=== PATIENT | female | born 1965 | race Two or more races ===

== ENCOUNTER 2024-05-03 09:26 | Emergency (ER) | payer MEDICAID, OTHER ==
[~2024-05-03] VITALS: Ht 157.5 cm; Wt 146.0 kg
[~2024-05-03 09:26] MED LIST: CEPH-91 PO
--- NOTE | 2024-05-03 10:04 | DVH ---
XY R KNEE 4V XRAY INDICATION: TRAUMA S/P FALL TECHNICAL DATA: Frontal, oblique and lateral views were obtained of the right knee. COMPARISON: None FINDINGS: No fracture is identified. Medial, lateral and patellofemoral compartment joint spaces are maintained . Alignment is anatomic. Soft tissues are within normal limits. No joint effusion is demonstrated. IMPRESSION: 1. No acute fracture or dislocation of the right knee.
[2024-05-03 10:48] VITALS: BP 113/71; PULSE 99; RESP 20; TEMP 98.2; O2SAT 95
--- NOTE | 2024-05-03 11:15 | ED.PDOC ---
Musculoskeletal HPI Comments A 58 YEAR OLD FEMALE PRESENTS TO THE ED WITH COMPLAINT OF RIGHT KNEE PAIN S/P FALL. PATIENT STATES SHE WAS TRYING TO GET INTO THE CAR TODAY AND SHE ACCIDENTALLY TWISTED HER RIGHT KNEE AND FELT A POP AND PAIN SHORTLY AFTER. PATIENT REPORTS SHE IS NOW EXPERIENCING RIGHT KNEE PAIN THAT IS WORSE WITH MOVEMENT AND WHEN BEARING WEIGHT. PATIENT DENIES HEAD INJURY, NECK INJURY, LOC, FEVER, CHILLS, SHORTNESS OF BREATH, CHEST PAIN, ABDOMINAL PAIN, NAUSEA, VOMITING, HEADACHE, OR OTHER COMPLAINTS. NO OTHER SYMPTOMS OR MODIFYING FACTORS AT THIS TIME. PATIENT IS ALERT, ORIENTED X 4, AND HAS STEADY GAIT. Chief Complaint: Fall Injury Time Seen by MD: 09:39 Primary Care Provider: NONE Reviewed Notes: Nurses Notes, Medications, Allergies Allergies: Coded Allergies: Bacitracin (Verified Allergy, Severe, RASH, 12/29/11) Neomycin (Verified Allergy, Severe, RASH, 12/29/11) Polymyxin B (Verified Allergy, Severe, RASH, 12/29/11) Home Meds Reported Medications Cephalexin (Keflex) 250 Mg Cap, 0 PO, CAP 06/02/13 Information Source: Patient Mode of Arrival: Ambulatory Location: Right Extremity Location: Knee Timing: Hours Severity: Moderate Able to Move Extremity: Yes Bear Weight: Limited Pain: Moderate Mechanism: Twisting Circumstances: Fall, Accident Onset of Symptoms: After Trauma Symptoms: Pain DVT Risk Factors: NONE Last Tetanus: Unknown Associated signs and symptoms: Knee pain Past Medical History PAST MEDICAL HISTORY: Anxiety, Depression, High Lipids, HTN Past Medical History (Other): ABD HERNIA, CHRONIC LOW BACK PAIN Surgical History: BTL, 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: No 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 History Family History Family History: No family hx of Cancer, No family hx of Heart john Social History Smoker: Cigarettes Alcohol: Denies ETOH Use Drugs: Denies Drug Use Lives In: Home Constitutional: denies: chills, diaphoresis, fatigue, fever, malaise, sweats, weakness, others EENTM: denies: blurred vision, double vision, ear bleeding, ear discharge, ear drainage, ear pain, ear ringing, eye pain, eye redness, hearing loss, mouth pain, mouth swelling, nasal discharge, nose bleeding, nose congestion, nose pain, photophobia, tearing, throat pain, throat swelling, voice changes, others Respiratory: denies: cough, hemoptysis, orthopnea, SOB at rest, shortness of breath, SOB with excertion, stridor, wheezing, others Cardiovascular: denies: chest pain, dizzy spells, diaphoresis, Dyspnea on exertion, edema, irregular heart beat, left arm pain, lightheadedness, palpi tations, PND, syncope, others Gastrointestinal: denies: abdomen distended, abdominal pain, blood streaked bowels, constipated, diarrhea, dysphagia, difficulty swallowing, hematemesis, melena, nausea, poor appetite, poor fluid intake, rectal bleeding, rectal pain, vomiting, others Genitourinary: denies: abnormal vagina bleeding, burning, dyspareunia, dysuria, flank pain, frequency, hematuria, incontinence, pain, , vagina discharge, urgency, others Neurological: denies: dizziness, fainting, headache, left sided numbness, left sided weakness, numbness, paresthesia, pre-existing deficit, right sided numbness, right sided weakness, seizure, speech problems, tingling, tremors, weakness, others Musculoskeletal: reports: joint pain, joint swelling, others (RIGHT KNEE PAIN); denies: back pain, gout, muscle pain, muscle stiffness, neck pain Integumetry: denies: bruises, change in color, change in hair/nails, dryness, laceration, lesions, lumps, rash, wounds, others Allergic/Immunocompromised: denies: Difficulty Healing, Frequent Infections, Hives, Itching, others Hematologic/Lymphatic: denies: anemia, blood clots, easy bleeding, easy bruising, swollen glands, others Endocrine: denies: excessive hunger, excessive sweating, excessive thirst, excessive urination, flushing, intolerance to cold, intolerance to heat, unexplained weight gain, unexplained weight loss, others Psychiatric: denies: anxiety, bipolar disorder, depression, hopeless, panic disorder, schizophrenia, sleepless, suicidal, others All Other Systems: Reviewed and Negative Physical Exam General Appearance: Obese HEENT: Normal ENT Inspection, PERRL/EOMI, Pharynx Normal, TMs Normal Neck: Full Range of Motion, Non-Tender, Normal, Normal Inspection Respiratory: Chest Non-Tender, Lungs Clear, No Accessory Muscle Use, No Respiratory Distress, Normal Breath Sounds Cardiovascular: No Edema, No JVD, No Murmur, No Gallop, Normal Peripheral Pulses, Regular Rate/Rhythm Breast Exam: Deferred Gastrointestinal: No Organomegaly, Non Tender, No Pulsatile Mass, Normal Bowel Sounds, Soft Genitalia: Deferred Pelvic: Deferred Rectal: Deferred Extremities: Decreased range of motion, No calf tenderness, Normal capillary refill, No pedal edema, Tender (AND MILD SWELLING ON RIGHT KNEE, NO JOINT EFFUSION OF RIGHT KNEE. ) Musculoskeletal : Apperance: Normal Neurologic: Alert, clinical nurse reviewer II-XII nml as Tested, No Motor Deficits, Normal Affect, Normal Mood, No Sensory Deficits Cerebellar Function: Normal Reflexes: Normal Skin: Dry, Normal Color, Warm Peripheral Pulses: 2+ carotid (R), 2+ carotid (L), 2+ dorsalis pedis (R), 2+ dorsalis pedis (L) Lymphatic: No Adenopathy Was a procedure done? Was a procedure done?: No Differential Diagnosis EXT Differential Diagnosis: Fracture, Sprain, Dislocation, DJD, Contusion, Strain, Arthritis, Bursitis X-Ray, Labs, Meds, VS Vital Signs Date Time Temp Pulse Resp B/P (MAP) Pulse Ox O2 Delivery O2 Flow Rate FiO2 05/03/24 10:48 98.2 99 20 113/71 (85) 95 98.2 05/03/24 10:48 99 20 95 Room Air 05/03/24 09:40 98.2 99 20 113/71 (85) 95 XY R KNEE 4V XRAY INDICATION: TRAUMA S/P FALL TECHNICAL DATA: Frontal, oblique and lateral views were obtained of the right knee. COMPARISON: None FINDINGS: No fracture is identified. Medial, lateral and patellofemoral compartment joint spaces are maintained. Alignment is anatomic. Soft tissues are within normal limits. No joint effusion is demonstrated. IMPRESSION: 1. No acute fracture or dislocation of the right knee. ATED BY: DOM CHOW MD DICTATED DATE/TIME: 05/03/24 100 SIGNED BY: DOM CHOW MD SIGNED DATE/TIME: 05/03/241000 CC: X-Ray, Labs, Meds, VS Comment EXTERNAL MEDICAL RECORDS REVIEWED: [NONE] INDEPENDENT HISTORIANS: [NONE] SOCIAL DETERMINANTS OF HEALTH: [NONE] LABS ORDERED: NONE REVIEWED AND INTERPRETED RESULTS: NONE IMAGING ORDERED: XR KNEE RT TREATMENTS ORDERED: KNEE IMMOBILIZER APPLIED TO PATIENT'S RIGHT KNEE. PROCEDURES PERFORMED: NONE CRITICAL CARE TIME: NONE I HAVE DISCUSSED THE PATIENT WITH THE ATTENDING PHYSICIAN DR. CORONA AND HE AGREES WITH THE PATIENT'S PLAN OF CARE AND DISPOSITION. BASED ON HISTORY OF PRESENT ILLNESS, AND PHYSICAL EXAM, PATIENT WILL BE DISCHARGED HOME. SHARED DECISION MAKING: PATIENT INSTRUCTED TO FOLLOW UP WITH PRIMARY CARE PROVIDER IN 1-2 DAYS FOR RE-EVALUATION OF SYMPTOMS. PATIENT VERBALIZES UNDERSTANDING TO RETURN TO ED FOR NEW OR WORSENING SYMPTOMS OR IF FOLLOW UP WITH PCP CANNOT BE OBTAINED. PATIENT FEELS COMFORTABLE GOING HOME AT THIS TIME. ALL QUESTIONS ADDRESSED AT TIME OF DISCHARGE. Images Reviewed?: Images reviewed and evaluated by me Time of 1ST Reevaluation: 11:25 Reevaluation 1ST: Improved Patient Education/Counseling: Diagnosis, Treatment, Need For Follow Up Family Education/Counseling: Diagnosis, Treatment, Need For Follow Up Medical Screening: No EMC Exist At This Time Departure 1 Departure Time of Disposition: 11:25 Impression: Primary Impression: Sprain of right knee Qualified Codes: S83.91XA - Sprain of unspecified site of right knee, init ial encounter Additional Impression: Status post fall Disposition: 01 HOME / SELF CARE / HOMELESS Condition: Stable Additional Instructions: FOLLOW-UP WITH PCP IN 1 TO 2 DAYS. RETURN TO ED FOR ANY NEW OR WORSENING SYMPTOMS. Discharged With: Self, Spouse Critical Care Note Critical Care Time?: No Stability Stability form required: No I personally scribed for EDWARDO VALENZUELA ([email or web address]) on 05/03/24 at 11:15. Electronically submitted by Bari Damico ([email or web address]). EDWARDO VALENZUELA May 03, 2024 11:15
== END 2024-05-03 11:26 | disposition home or self-care (01) ==
LOC: ER 09:26
DX: S83.91XA Sprain of unspecified site of right knee, initial encounter (principal); I10 Essential (primary) hypertension; F17.210 Nicotine dependence, cigarettes, uncomplicated; Z98.51 Tubal ligation status; X50.1XXA Overexertion from prolonged static or awkward postures, initial encounter; Y93.89 Activity, other specified; Y92.89 Other specified places as the place of occurrence of the external cause; Y99.8 Other external cause status
CPT/HCPCS: 29505; 73564

== ENCOUNTER 2025-01-14 12:11 | Inpatient (IN) | payer MEDICAID ==
[~2025-01-14] VITALS: Ht 157.5 cm; Wt 162.7 kg
--- NOTE | 2025-01-14 12:50 | ED.PDOC ---
History of Present Illness HPI Comments 59-year-old female presents to the ER in a wheelchair and with prior medical history of gastric sleeve in the chief complaint of chest pain. Patient reports on having left-sided chest pain for the past two days which was constant and worsens with exertion, associated with shortness a breath. Chief Complaint: Chest Pain Time Seen by MD: 12:45 Primary Care Provider: NONE Reviewed Notes: Nurses Notes, Medications, Allergies Allergies: Coded Allergies: Bacitracin (Verified Allergy, Severe, RASH, 12/29/11) Neomycin (Verified Allergy, Severe, RASH, 12/29/11) Polymyxin B (Verified Allergy, Severe, RASH, 12/29/11) Home Meds Reported Medications Cephalexin (Keflex) 250 Mg Cap, 0 PO, CAP 06/02/13 Information Source: Patient Mode of Arrival: Wheelchair Severity: Moderate Timing: Days Duration: Since onset, Days Prehospital treatment: None Past Medical History Surgical History (Other): Gastric sleeve 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: No 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 History Family History Family History: Reviewed,noncontributory to illness, Unknown Social History Smoker: Unknown Alcohol: Unknown Drugs: Unknown Lives In: Home Constitutional: denies: chills, diaphoresis, fatigue, fever, malaise, sweats, weakness, others EENTM: denies: blurred vision, double vision, ear bleeding, ear discharge, ear drainage, ear pain, ear ringing, eye pain, eye redness, hearing loss, mouth pain, mouth swelling, nasal discharge, nose bleeding, nose congestion, nose pain, photophobia, tearing, throat pain, throat swelling, voice changes, others Respiratory: reports: shortness of breath; denies: cough, hemoptysis, orthopnea, SOB at rest, SOB with excertion, stridor, wheezing, others Cardiovascular: reports: chest pain; denies: dizzy spells, diaphoresis, Dyspnea on exertion, edema, irregular heart beat, left arm pain, lightheadedness, palpitations, PND, syncope, others Gastrointestinal: denies: abdomen distended, abdominal pain, blood streaked bowels, constipated, diarrhea, dysphagia, difficulty swallowing, hematemesis, melena, nausea, poor appetite, poor fluid intake, rectal bleeding, rectal pain, vomiting, others Genitourinary: denies: abnormal vagina bleeding, burning, dyspareunia, dysuria, flank pain, frequency, hematuria, incontinence, pain, , vagina discharge, urgency, others Neurological: denies: dizziness, fainting, headache, left sided numbness, left sided weakness, numbness, paresthesia, pre-existing deficit, right sided numbness, right sided weakness, seizure, speech problems, tingling, tremors, weakness, others Musculoskeletal: denies: back pain, gout, joint pain, joint swelling, muscle pain, muscle stiffness, neck pain, others Integumetry: denies: bruises, change in color, change in hair/nails, dryness, laceration, lesions, lumps, rash, wounds, others Allergic/Immunocompromised: denies: Difficulty Healing, Frequent Infections, Hives, Itching, others Hematologic/Lymphatic: denies: anemia, blood clots, easy bleeding, easy bruising, swollen glands, others Endocrine: denies: excessive hunger, excessive sweating, excessive thirst, excessive urination, flushing, intolerance to cold, intolerance to heat, unexplained weight gain, unexplained weight loss, others Psychiatric: denies: anxiety, bipolar disorder, depression, hopeless, panic disorder, schizophrenia, sleepless, suicidal, others All Other Systems: Reviewed and Negative Physical Exam General Appearance: Moderate Distress, Obese HEENT: Normal ENT Inspection, Pharynx Normal, TMs Normal Neck: Full Range of Motion, Non-Tender, Normal, Normal Inspection Respiratory: Chest Non-Tender, Lungs Clear, No Accessory Muscle Use, No Respiratory Distress, Normal Breath Sounds Cardiovascular: No Edema, No JVD, No Murmur, No Gallop, Normal Peripheral Pulses, Regular Rate/Rhythm Breast Exam: Deferred Gastrointestinal: No Organomegaly, Non Tender, No Pulsatile Mass, Normal Bowel Sounds, Soft Genitalia: Deferred Pelvic: Deferred Rectal: Deferred Extremities: No calf tenderness, Normal capillary refill, Normal range of motion, No pedal edema Musculoskeletal : Apperance: Normal Neurologic: Alert, television installer II-XII nml as Tested, No Motor Deficits, Normal Affect, Normal Mood, No Sensory Deficits Cerebellar Function: NOT DONE Reflexes: NOT DONE Skin: Dry, Normal Color, Warm Peripheral Pulses: 3+ Radial (R), 3+ Radial (L) Lymphatic: No Adenopathy Was a procedure done? Was a procedure done?: No EKG EKG : Pulse Rate (adult): 74 [place]: Normal Cardiac Rhythm: NSR Block: None Hypertrophy: None ST: Normal Differential Dx Considerations may include: Anemia Electrolyte imbalance X-Ray, Labs, Meds, VS Vital Signs Date Time Temp Pulse Resp B/P (MAP) Pulse Ox O2 Delivery O2 Flow Rate FiO2 01/14/25 13:19 142/92 01/14/25 13:16 68 01/14/25 12:50 74 01/14/25 12:15 74 01/14/25 12:12 75 26 147/64 96 Lab Test 01/14/25 14:41 01/14/25 13:21 01/14/25 12:35 Range/Units Troponin I High Sensitivity Pending < 3 L </=34 ng/L Urine Color Pending Urine Clarity Pending Urine pH Pending Urine Specific [place] Pending Urine Protein Pending Urine Ketones Pending Urine Blood Pending Urine Nitrite Pending Urine Bilirubin Pending Urine Urobilinogen Pending Urine Leukocyte Esterase Pending Urine RBC Pending Urine Microscopic WBC Pending Urine Squamous Epithelial Cells Pending Urine Bacteria Pending Urine Glucose Pending White Blood Count 7.9 4.4-10.8 10^3/uL Red Blood Count 4.87 4.0-5.20 10^6/uL Hemoglobin 14.6 12.2-16.2 g/dL Hematocrit 43.5 36.0-46.0 % Mean Corpuscular Volume 89.3 80.0-100.0 fL Mean Corpuscular Hemoglobin 29.9 28.0-32.0 pg Mean Corpuscular Hemoglobin Concent 33.5 32.0-36.0 g/dL Red Cell Distribution Width 14.9 H 11.8-14.3 % Platelet Count 290 140-450 10^3/uL Mean Platelet Volume 8.2 6.9-10.8 fL Neutrophils (%) (Auto) 69.0 37.0-80.0 % Lymphocytes (%) (Auto) 21.4 10.0-50.0 % Monocytes (%) (Auto) 7.6 0.0-12.0 % Eosinophils (%) (Auto) 1.3 0.0-7.0 % Basophils (%) (Auto) 0.7 0.0-2.0 % Neutrophils # (Auto) 5.4 1.6-8.6 10 ^3/uL Lymphocytes # (Auto) 1.7 0.4-5.4 10 ^3/uL Monocytes # (Auto) 0.6 0-1.3 10 ^3/uL Eosinophils # (Auto) 0.1 0-0.8 10 ^3/uL Basophils # (Auto) 0.1 0-0.2 10 ^3/uL Nucleated Red Blood Cells 0.1 % Sodium Level 140 136-145 mmol/L Potassium Level 5.1 3.5-5.1 mmol/L Chloride Level 107 98-107 mmol/L Carbon Dioxide Level 24 20-31 mmol/L Anion Gap 9 5-15 Blood Urea Nitrogen 9 9-23 mg/dL Creatinine 1.03 H 0.550-1.02 mg/dL Glomerular Filtration Rate Calc 63 >90 mL/min BUN/Creatinine Ratio 8.7 L 10.0-20.0 Serum Glucose 104 74-106 mg/dL Calcium Level 9.1 8.7-10.4 mg/dL Current Medications Medications (Trade) Dose Ordered Sig/Demetria Route Start Time Stop Time Status Last Admin Aspirin 325 mg ONCE ONCE PO 01/14/25 12:45 01/14/25 12:46 DC 01/14/25 13:18 Nitroglycerin (Ntrostat Sublingual) 0.4 mg ONCE ONCE SL 01/14/25 12:45 01/14/25 12:46 DC 01/14/25 13:19 Patient alert. Complaining of chest pain. Was given aspirin. Was given nitro. Potassium is upper limit of normal. Continues to have chest pain. Was given morphine. Was given Zofran. EKG reviewed does not show any acute changes. Explained to the patient. Continue monitoring. Time of 1ST Reevaluation: 13:15 Reevaluation 1ST: Unchanged Patient Education/Counseling: Diagnosis, Treatment, Prognosis Family Education/Counseling: Diagnosis, Treatment, Prognosis SEPSIS Sepsis Screen Date sepsis recognized/suspect: Jan 14, 2025 Time Sepsis recognized/suspect: 1212 Recent Procedure: No On Antibiotic Therapy: No Respiratory Rate >20: No Heart Rate >90: No Temp<36 C (96.8 F) or >38.3 C: No SBP <90 or MAP <65 mmHG: No New Acute Mental Status Change: No Is the patient on CPAP, BIPAP,: No Physician Orders Electrocardigram (01/14/25 13:18) Electrocardigram (01/14/25 15:18) Troponin-I Hs (01/14/25 13:21) Troponin-I Hs (01/14/25 15:21) Chest Portable (01/14/25 12:44) Urinalysis (01/14/25 12:44) Vital Signs Date Time Temp Pulse Resp B/P (MAP) Pulse Ox O2 Delivery O2 Flow Rate FiO2 01/14/25 13:19 142/92 01/14/25 13:16 68 01/14/25 12:50 74 01/14/25 12:15 74 01/14/25 12:12 75 26 147/64 96 Laboratory Tests Test 01/14/25 12:35 White Blood Count 7.9 10^3/uL (4.4-10.8) Medications Medications Dose Ordered Sig/Demetria Route Start Time Stop Time Status Last Admin Dose Admin Aspirin 325 mg ONCE ONCE PO 01/14/25 12:45 01/14/25 12:46 DC 01/14/25 13:18 Nitroglycerin 0.4 mg ONCE ONCE SL 01/14/25 12:45 01/14/25 12:46 DC 01/14/25 13:19 Departure 1 Departure Time of Disposition: 15:17 Impression: Primary Impression: Chest pain of unknown etiology Additional Impression: HTN (hypertension) Qualified Codes: I10 - Essential (primary) hypertension Disposition: ADMITTED INPATIENT Admit to: Med Surg Condition: Guarded Critical Care Note Critical Care Time?: No Stability Stability form required: No Heart Score Heart Score: Heart Score Response (Comments) Value History Slightly Suspicious 0 EKG Normal 0 Age 45-64 1 Risk Factors >3 or Hx ASHD 2 Troponin Normal limit 0 Total 3 I personally scribed for PORSCHE CORONA MD ([email or web address]) on 01/14/25 at 12:50. Electronically submitted by Jose Gilmore ([email or web address]). PORSCHE CORONA MD Jan 14, 2025 12:50
--- NOTE | 2025-01-14 13:17 | ECG ---
[facility] Test Date: 2025-01-14 Test Time: 13:16:36 Pat Name: FRANK GAITAN Department: ED Room: [address] [place] [address] Gender: F Operations Research Analyst: ROSCOE : 1965 Requested By: PORSCHE CORONA Order Number: [id number] Reading MD: Leonard Cruz Measurements Intervals [place] Rate: 68 P: 39 MO: 187 QRS: 74 QRSD: 109 T: 70 QT: 418 QTc: 445 Interpretive Statements Sinus rhythm Atrial premature complex Low voltage, precordial leads Electronically Signed On 01-15-2025 14:27:45 PDT by Leonard Cruz Please click the below link to view image of tracing.
[2025-01-14] MEDS: NITROGLYCERIN 0.4 MG SL TAB SL ONE (13:19)
--- NOTE | 2025-01-14 13:48 | DVH ---
CHEST RADIOGRAPH Indication: sob Technique: Single frontal view of the chest was obtained Comparison: None FINDINGS: Lines and Tubes: None Lungs: Pulmonary vascular congestion. No focal consolidation. Pleura: No effusion. No pneumothorax. Cardiomediastinal contours: Unremarkable Bones: No acute osseous abnormality. IMPRESSION: 1. Pulmonary vascular congestion. No focal consolidation.
[2025-01-14 14:51] LABS: Hematocrit 43.5 % (36.0-46.0); Hemoglobin 14.6 g/dL (12.2-16.2); Mean Corpuscular Hemoglobin 29.9 pg (28.0-32.0); Mean Corpuscular Volume 89.3 fL (80.0-100.0); Nucleated Red Blood Cells % 0.1 %
[2025-01-14 14:53] LABS: Chloride 107 mmol/L (98-107); Potassium 5.1 mmol/L (3.5-5.1); Sodium 140 mmol/L (136-145)
[2025-01-14 14:54] LABS: Anion Gap 9 (5-15); Carbon Dioxide 24 mmol/L (20-31)
[2025-01-14 14:55] LABS: Calcium 9.1 mg/dL (8.7-10.4)
[2025-01-14 14:59] LABS: BUN/Creatinine Ratio 8.7 (10.0-20.0); Glucose 104 mg/dL (74-106)
[2025-01-14 15:10] LABS: Blood Urea Nitrogen 9 mg/dL (9-23)
[2025-01-14 15:31] LABS: Urine Protein, UAD Negative (Negative)
[2025-01-14] MEDS: ONDANSETRON HCL 4 MG/2 ML VIAL IV ONE ×2 (16:20→19:00)
[2025-01-14] MEDS: MORPHINE SULFATE 4 MG/ML SYR/VIAL IV ONE ×2 (16:20→19:00)
[2025-01-14] MEDS ORDERED: NITROGLYCERIN 0.4 MG SL TAB SL PRN (23:15)
--- NOTE | 2025-01-14 23:54 | DVHHPRES ---
History of Present Illness Resident Creating Document: CHAZ WILSON RESIDENT History of Present Illness Concepción Sanchez is a 59 year old female with past medical history of hyperlipidemia, hypertension, anxiety, depression, PTSD,GERD, Umbilical hernia who came to the ED with chief complaints of 7/10, pressure-like chest pain, constant, radiating to the back and left arm, increased with exertion, relieved with rest and associated with shortness of breath since 3 days. Patient states that today morning her pain has increased and to the ED. patient also complained of bilateral leg swelling since 1 year, uses CPAP at night with 2 L oxygen for obstructive sleep apnea. Patient also states she had a thyroid nodule, adrenal cyst. He also states she has heartburn, dizziness when getting up, lower back pain, neck pain, constipation with last bowel movement 2 days ago. Patient also states she has pain in her hernia when she coughs or sneezes. Patient denies any dysuria, hematuria, fever, chills, palpitations, dizziness, headaches, diarrhea, nausea, vomiting. Patient is admitted for further management. Echo was ordered, Cardiology consulted. Surgical history: Appendicectomy, gastric bypass surgery in 2021 Family history: Father of [place] in 40s Personal history: Quit smoking 5 years ago used to smoke 1 pack per day since 40 years, denies drinking, drug use Lives with: Family PCP: Dr. Tran Review of Systems Constitutional: No: Fever, Chills, Sweats, Weakness, Malaise, Other Eyes: No: Pain, Vision change, Conjunctivae inflammation, Eyelid inflammation, Other, Redness ENT: No: Ear pain, Ear discharge, Nose pain, Nose discharge, Nose congestion, Mouth pain, Mouth swelling, Throat pain, Throat swelling, Other Respiratory: Shortness of breath, SOB with excertion; No: Cough, Dry, Wheezing, Hemoptysis, Pleuritic Pain, Sputum, Wheezing, Other Cardiovascular: Chest Pain; No: Palpitations, Orthopnea, Paroxysmal Noc. Dyspnea, Edema, Lt Headedness, Other Gastrointestinal: No: Nausea, Vomiting, Abdominal Pain, Diarrhea, Constipation, Melena, Hematochezia, Other Genitourinary: No Dysuria, No Frequency, No Incontinence, No Hematuria, No Retention, No Other Musculoskeletal: No: other, neck pain, shoulder pain, arm pain, back pain, hand pain, leg pain, foot pain Skin: No: Rash, Lesions, Jaundice, Bruising, Other Neurological: No: Weakness, Numbness, Incoordination, Change in speech, Confusion, Seizures, Other Allergies: Coded Allergies: Bacitracin (Verified Allergy, Severe, RASH, 12/29/11) Neomycin (Verified Allergy, Severe, RASH, 12/29/11) Polymyxin B (Verified Allergy, Severe, RASH, 12/29/11) Medications Current Medications Medications Dose Ordered Sig/Demetria Route Start Time Stop Time Status Last Admin Dose Admin Nitroglycerin 0.4 mg Q5MINP PRN SL 01/14/25 23:15 Morphine Sulfate 2 mg Q30M PRN IV 01/14/25 23:15 Exam Vital Signs Vital Signs Date Time Temp Pulse Resp B/P (MAP) Pulse Ox O2 Delivery O2 Flow Rate FiO2 01/14/25 23:38 97.6 60 16 128/42 (70) 96 97.6 01/14/25 16:13 Room Air Exam General: Patient alert and oriented in person, place and time. Patient following commands. In moderate distress HEENT: Normocephalic, atraumatic, moist mucous membranes Respiratory/pulmonary: Clear lungs bilaterally, vesicular murmurs present in almost all lung guan, crackles heard on auscultation Cardiovascular: Normal heart sounds S1 and S2 with no associated murmurs Abdomen: Abdomen nondistended, there is no pain to palpation in any of the abdominal quadrants, no palpable masses. Extremities: +2 Bilateral leg swelling Peripheral Pulses: 3+ Radial (R). 3+ Radial (L). 3+ Dorsalis pedis (R). 3+ Dorsalis pedis(L) Skin: No rashes or pruritus, there is no sacral edema present at this time. Neurological: Intact cranial nerves with no focal neurologic deficits Labs/Xrays Labs Test 01/14/25 14:41 01/14/25 13:21 01/14/25 12:35 Range/Units Troponin I High Sensitivity < 3 L </=34 ng/L Urine Color Yellow Yellow Urine Clarity Hazy H Clear Urine pH 5.5 5.0-9.0 Urine Specific [place] 1.025 1.001-1.035 Urine Protein Negative Negative Urine Ketones Negative Negative Urine Blood Negative Negative /uL Urine Nitrite Negative Negative Urine Bilirubin Negative Negative Urine Urobilinogen Normal Negative mg/dL Urine Leukocyte Esterase Negative Negative /uL Urine RBC 1 0 - 4 /hpf Urine Microscopic WBC 11 H 0-5 /HPF Urine Squamous Epithelial Cells Mod <5 /hpf Urine Bacteria Many H None Seen /hpf Urine Glucose Normal Normal mg/dL White Blood Count 7.9 4.4-10.8 10^3/uL Red Blood Count 4.87 4.0-5.20 10^6/uL Hemoglobin 14.6 12.2-16.2 g/dL Hematocrit 43.5 36.0-46.0 % Mean Corpuscular Volume 89.3 80.0-100.0 fL Mean Corpuscular Hemoglobin 29.9 28.0-32.0 pg Mean Corpuscular Hemoglobin Concent 33.5 32.0-36.0 g/dL Red Cell Distribution Width 14.9 H 11.8-14.3 % Platelet Count 290 140-450 10^3/uL Mean Platelet Volume 8.2 6.9-10.8 fL Neutrophils (%) (Auto) 69.0 37.0-80.0 % Lymphocytes (%) (Auto) 21.4 10.0-50.0 % Monocytes (%) (Auto) 7.6 0.0-12.0 % Eosinophils (%) (Auto) 1.3 0.0-7.0 % Basophils (%) (Auto) 0.7 0.0-2.0 % Neutrophils # (Auto) 5.4 1.6-8.6 10 ^3/uL Lymphocytes # (Auto) 1.7 0.4-5.4 10 ^3/uL Monocytes # (Auto) 0.6 0-1.3 10 ^3/uL Eosinophils # (Auto) 0.1 0-0.8 10 ^3/uL Basophils # (Auto) 0.1 0-0.2 10 ^3/uL Nucleated Red Blood Cells 0.1 % Sodium Level 140 136-145 mmol/L Potassium Level 5.1 3.5-5.1 mmol/L Chloride Level 107 98-107 mmol/L Carbon Dioxide Level 24 20-31 mmol/L Anion Gap 9 5-15 Blood Urea Nitrogen 9 9-23 mg/dL Creatinine 1.03 H 0.550-1.02 mg/dL Glomerular Filtration Rate Calc 63 >90 mL/min BUN/Creatinine Ratio 8.7 L 10.0-20.0 Serum Glucose 104 74-106 mg/dL Calcium Level 9.1 8.7-10.4 mg/dL SEPSIS Sepsis Screen Date sepsis recognized/suspect: Jan 14, 2025 Time Sepsis recognized/suspect: 2 Recent Procedure: No On Antibiotic Therapy: No Respiratory Rate >20: No Heart Rate >90: No Temp<36 C (96.8 F) or >38.3 C: No SBP <90 or MAP <65 mmHG: No New Acute Mental Status Change: No Is the patient on CPAP, BIPAP,: No Physician Orders Admit (01/14/25 23:05) Nitroglycerin Sublingual (Ntrostat Subli (01/14/25 23:15) Morphine Sulfate Injection (01/14/25 23:15) Oxygen By Nasal Cannula (01/14/25 23:05) Stat Ekg For Chest Pain (01/14/25 23:05) Notify Md Of Changes From Base (01/14/25 23:05) Assembler Engine For 24 Hours (01/14/25 23:05) Emergency Dysrhythmia Protocol (01/14/25 23:05) Rhythm Strips Once Every Shift (01/14/25 23:05) Vital Signs Date Time Temp Pulse Resp B/P (MAP) Pulse Ox O2 Delivery O2 Flow Rate FiO2 01/14/25 23:38 97.6 60 16 128/42 (70) 96 97.6 01/14/25 19:55 98.3 64 18 135/67 (89) 94 98.3 01/14/25 19:13 65 16 134/76 01/14/25 16:20 71 20 133/70 01/14/25 16:13 98.4 71 16 133/70 (91) 96 98.4 01/14/25 16:13 71 16 96 Room Air Laboratory Tests Test 01/14/25 12:35 White Blood Count 7.9 10^3/uL (4.4-10.8) Medications Medications Dose Ordered Sig/Demetria Route Start Time Stop Time Status Last Admin Dose Admin Aspirin 325 mg ONCE ONCE PO 01/14/25 12:45 01/14/25 12:46 DC 01/14/25 13:18 325 MG Morphine Sulfate 4 mg ONCE ONCE IV 01/14/25 15:30 01/14/25 15:31 DC 01/14/25 16:20 4 MG Nitroglycerin 0.4 mg ONCE ONCE SL 01/14/25 12:45 01/14/25 12:46 DC 01/14/25 13:19 0.4 MG Ondansetron HCl 4 mg ONCE ONCE IV 01/14/25 15:30 01/14/25 15:31 DC 01/14/25 16:20 4 MG Assessment/Plan Assessment/Plan Assessment and Plan # Acute chest pain, rule out ACS, likely because of CHF, ?gastritis, other causes not ruled out yet - aspirin 325mg, 81 mg - repeat EKG - trops WNL - echo ordered, pending - Cardiology consulted, pending - morphine 2 mg, nitro s/l for pain management # Possible systolic/diastolic heart failure exacerbation - Echo ordered, pending - Cardiology consulted, pending - furosemide 40 mg IV once, reassess for response, and will adjust dosage. # Hypertension - continue home meds # MALLY due to ?cardiorenal syndrome - monitor kidney function - consider urine studies # Umbilical Hernia -follow up outpatient # Dyslipidemia - continue atorvastatin # anxiety # depression # PTSD - Continue home meds #GERD. resume home meds #Morbid obesity: BMI 65.5 - patient counseled on diet, exercise, lifestyle modifications for 13 minutes PPI prophylaxis: Pantoprazole 40 mg DVT prophylaxis: Lovenox 60 mg Goals of care addressed with the patient for more than 35 minutes: Full code status Case discussed with , patient and nurse Plan discussed with: Patient My Orders Orders - CHAZ WILSON RESIDENT Procedure Category Date Status Time Admit ADMIT 01/14/25 Transmitted 23:05 Nitroglycerin PHA 01/14/25 In Process Sublingual (Ntrostat 23:15 Morphine Sulfate PHA 01/14/25 In Process Injection 23:15 Oxygen By Nasal RT 01/14/25 Transmitted Cannula 23:05 Stat Ekg For Chest ERON 01/14/25 In Process Pain 23:05 Notify Of Changes ERON 01/14/25 In Process From Base 23:05 Assembler Engine For ERON 01/14/25 In Process 24 Hours 23:05 Emergency Dysrhythmia ERON 01/14/25 In Process Protocol 23:05 Rhythm Strips Once [facility] 01/14/25 In Process Every Shift 23:05 CHAZ WILSON RESIDENT Jan 14, 2025 23:54 AUNDREA SWEENEY RESIDENT Jan 15, 2025 08:28
[2025-01-15] VITALS (8 sets, daily range): BP systolic 107–126; BP diastolic 40–86; PULSE 68–103; RESP 18–20; TEMP 96.8–98.1; O2SAT 92–96
[2025-01-15] MEDS: FUROSEMIDE 40 MG/4 ML VIAL IV ONE (01:30)
[2025-01-15 01:46] LABS: HDL Cholesterol 57 mg/dL (40-59)
[2025-01-15 01:47] LABS: Cholesterol 336 mg/dL (< 200); Triglycerides 276 mg/dL (< 150)
[2025-01-15] MEDS: MORPHINE SULFATE INJ 2 MG/ml SYRG IV PRN (02:04)
[2025-01-15 03:03] LABS: COVID19 ANTIGEN SOFIA FIA NEGATIVE (NEGATIVE)
[2025-01-15 06:05] LABS: Amphetamine Screen, Urine Neg (NEGATIVE); Barbiturate Scree,Urine Neg (NEGATIVE); Opiate Scree,Urine Pos (NEGATIVE); Phencyclidine Screen, Urine Neg (NEGATIVE)
[2025-01-15 06:06] LABS: Benzodiazephine Screen, Urine Neg (NEGATIVE); Cannabinoid Screen, Urine Neg (NEGATIVE); Cocaine Screen, Urine Neg (NEGATIVE)
--- NOTE | 2025-01-15 06:12 | ECG ---
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
[2025-01-15] MEDS ORDERED: ENOXAPARIN SOD 60 MG/0.6 ML SYRINGE SC SCH (06:15)
[2025-01-15 07:01] LABS: Albumin 4.5 g/dL (3.2-4.8); Alkaline Phosphatase 110 U/L (46-116); Bilirubin, Total 0.4 mg/dL (0.2-1.0); Total Protein 7.3 g/dL (5.7-8.2)
[2025-01-15 07:03] LABS: Alanine Aminotransferase 45 U/L (7-40); Bilirubin, Direct < 0.1 mg/dL (<0.3)
[2025-01-15] MEDS: PANTOPRAZOLE 40 MG/10 ML VIAL INJ IV ONE (07:26)
[2025-01-15] MEDS: ATORVASTATIN 20 MG TAB PO ONE (07:26)
[2025-01-15 09:49] LABS: Hematocrit 42.9 % (36.0-46.0); Hemoglobin 14.4 g/dL (12.2-16.2); Mean Corpuscular Hemoglobin 29.2 pg (28.0-32.0); Mean Corpuscular Volume 87.4 fL (80.0-100.0); Nucleated Red Blood Cells % 0.1 %
[2025-01-15 09:55] LABS: INR 0.98 (0.9-1.15); Partial Thromboplastin Time 29.1 SEC (24.5-34.5); Prothrombin Time 10.4 sec (9.3-11.8)
[2025-01-15] MEDS: LISINOPRIL 5 MG TAB PO SCH (10:00)
[2025-01-15 10:09] LABS: Alanine Aminotransferase 38 U/L (7-40); Albumin 4.1 g/dL (3.2-4.8); Alkaline Phosphatase 101 U/L (46-116); Anion Gap 7 (5-15); BUN/Creatinine Ratio 7.5 (10.0-20.0); Calcium 9.0 mg/dL (8.7-10.4); Carbon Dioxide 26 mmol/L (20-31); Chloride 105 mmol/L (98-107); Magnesium 2.2 mg/dL (1.6-2.6); Sodium 138 mmol/L (136-145); Total Protein 6.6 g/dL (5.7-8.2)
[2025-01-15 10:10] LABS: Bilirubin, Total 0.8 mg/dL (0.2-1.0)
[2025-01-15 10:11] LABS: Blood Urea Nitrogen 8 mg/dL (9-23); Glucose 116 mg/dL (74-106); Potassium 5.4 mmol/L (3.5-5.1)
--- NOTE | 2025-01-15 12:29 | DVHSR ---
APPROVED REPORT EXAM: Two-dimensional and M-mode echocardiogram with Doppler and color Doppler. Blood Pressure: 120/69 mmHg INDICATION Rule out structural heart disease RISK FACTORS Obesity: Height: 62, Weight: 358 DIMENSIONS LVDd4.3 (3.8-5.7cm)LA (2D) (1.9-4.0cm)Aortic Root3.0 (2.0-3.7cm) LVDs3.1 (2.5-4.0cm)LA (MM) (1.9-4.0cm)Aortic Cusp Exc (1.5-2.0cm) EF (%) 55.0 (55-70%)Rt. Atrium (1.9-4.0cm)Asc. Aorta cm Mitral Valve MitralMitral Stenosis E wave0.64m/sMV Mean GR.mmHg A wave0.80m/sMV Peak GR.mmHg E/A ratio0.82D MVAcm2 DECEL [id number] 1/2 [id number] IVRTmsDop MVA4.51cm2 Aortic Valve Aortic ValveAortic Stenosis V10.88m/Tristen Mean GR.3mmHg V21.26m/Tristen Peak GR.6mmHg LVOT Diameter1.6 (1.8-2.4cm)Doppler AVA1.40cm2 Pulmonic Valve V20.89m/s Other Information Technically limited study due to body habitus and patient position. Conclusion lvef 55% RV enlarged, normal function biatrial enlargement no severe valve abnormalities noted pericardial fat pad noted
[2025-01-15] MEDS: PRAZOSIN HCL 1 MG CAP PO SCH (12:48)
[2025-01-15] MEDS: PARoxetine 20 MG TAB PO SCH (12:49)
--- NOTE | 2025-01-15 13:59 | DVHCONRES ---
Date Seen: Jan 15, 2025 Resident Creating Document: RAFFY BATISTA RESIDENT Referring Physician CHAZ WILSON RESIDENT Reason for Consultation chest pain, rule out ACS History of Present Illness 59-year-old female with PMH of hyperlipidemia, hypertension, anxiety, depressi on, PTSD, PASHA on CPAP with 2 L O? nocte, thyroid nodule, adrenal cyst, and umbilical hernia. She presented with 34 days of constant, pressure-like left- sided chest pain radiating to the neck/back, worse with exertion and associated with shortness of breath and diaphoresis. Pain initially 7/10, now 6/10 despite nitroglycerin, morphine, and ASA in ED. No nausea or vomiting; positive for dizziness/lightheadedness. Reports chronic bilateral leg swelling 1 yr and reduced exercise tolerance. Denies recent pneumonia, asthma, or COPD exacerbation. Family history significant for father with premature CAD and CABG. Current symptoms today: Ongoing chest discomfort, exertional dyspnea, lightheadedness, and mild anxiety. Brief Interval Course / Treatments * ED: ASA, morphine, nitroglycerin, enoxaparin (dose unclearclarify), IV Lasix 40 mg, atorvastatin, pantoprazole. * Serial troponins: all <3 ng/L (negative). * BNP: 603 pg/mL (elevated). * EKGs: Sinus rhythm; PACs; low voltage precordial leads; one tracing with first -degree AV block (HI 218 ms); QTc 464129 ms. * Echo: EF 55%, RV enlarged, biatrial enlargement, no severe valve disease, technically limited by body habitus, pericardial fat pad noted. * Labs: Cr 1.031.06 (eGFR ~6163), K 4.55.1, mild transaminitis (AST/ALT 4045), LDL 265, TC 336, TG 276, HDL 57, HbA1c 5.8, TSH 4.41, Vit D 24.1 (low), Vit B12 586. Planned: Cardiolite stress test for further ischemia evaluation. Past Medical History HTN, HLD, anxiety, depression, PTSD, PASHA on CPAP, thyroid nodule, adrenal cyst, umbilical hernia. Past Surgical History Appendectomy, gastric bypass (2021). Family History: Cardiovascular disease G8 FATHER, Colon cancer G8 MOTHER Family History Father [place]/CABG in 40s. Social History Quit smoking 5 yrs ago (1 ppd 40 yrs), no alcohol/drugs. Allergies: Coded Allergies: Bacitracin (Verified Allergy, Severe, RASH, 12/29/11) Neomycin (Verified Allergy, Severe, RASH, 12/29/11) Polymyxin B (Verified Allergy, Severe, RASH, 12/29/11) Home Meds Reported Medications Cephalexin (Keflex) 250 Mg Cap, 0 PO, CAP 06/02/13 Current Medications Current Medications Medications (Trade) Dose Ordered Sig/Demetria Route PRN Reason Start Time Stop Time Status Last Admin Nitroglycerin (Ntrostat Sublingual) 0.4 mg Q5MINP PRN SL FOR CHEST PAIN 01/14/25 23:15 Morphine Sulfate 2 mg Q30M PRN IV FOR CHEST PAIN 01/14/25 23:15 01/15/25 02:04 Aspirin 81 mg DAILY PO 01/15/25 10:00 01/15/25 10:07 Atorvastatin Calcium (Lipitor) 40 mg HS PO 01/16/25 22:00 Enoxaparin Sodium (Lovenox) 60 mg DAILY SC 01/15/25 06:15 01/15/25 13:42 DC Pantoprazole Sodium (Protonix) 40 mg DAILY IV 01/16/25 10:00 Paroxetine HCl (Paxil Tablet) 40 mg DAILY PO 01/15/25 10:00 01/15/25 12:49 Buspirone HCl (Buspar Tablet) 15 mg Q12HR PO 01/15/25 10:00 01/15/25 12:49 Lisinopril (Zestril Tablet) 10 mg DAILY PO 01/15/25 10:00 Quetiapine Fumarate (SEROquel TABLET) 200 mg HS PO 01/15/25 22:00 Prazosin HCl (Minipres Capsule) 2 mg Q12HR PO 01/15/25 10:00 01/15/25 12:48 Enoxaparin Sodium (Lovenox) 40 mg DAILY SC 01/15/25 13:45 UNV Review of Systems * Cardiac: Chest pain, exertional dyspnea, leg swelling, dizziness/lighthe adedness. * Pulm: No cough, sputum, or wheeze. * GI: No nausea, vomiting; constipation. * Neuro: No syncope, focal deficits. * General: No fever or chills. Vital Signs Vital Signs Date Time Temp Pulse Resp B/P (MAP) Pulse Ox O2 Delivery O2 Flow Rate FiO2 01/15/25 12:48 109/40 01/15/25 09:00 97.7 74 20 94 97.7 01/15/25 02:38 Room Air* 0 21 Physical Exam * PMH: HTN, HLD, anxiety, depression, PTSD, PASHA on CPAP, thyroid nodule, adrenal cyst, umbilical hernia. * PSH: Appendectomy, gastric bypass (2021). * Family: Father [place]/CABG in 40s. * Social: Quit smoking 5 yrs ago (1 ppd 40 yrs), no alcohol/drugs. * Allergies: Neosporin. * Home Meds: Paroxetine 40 mg qHS, Brexpiprazole 0.25 mg daily, Buspirone 15 mg TID, Lisinopril 10 mg daily, Quetiapine 200 mg qHS, Prazosin 10 mg qHS, [place] 10/325 BID PRN. Labs/Diagnostic Data Labs Test 01/15/25 11:43 01/15/25 09:20 01/15/25 01:30 01/15/25 00:45 Range/Units Troponin I High Sensitivity < 3 L </=34 ng/L White Blood Count 7.7 4.4-10.8 10^3/uL Red Blood Count 4.91 4.0-5.20 10^6/uL Hemoglobin 14.4 12.2-16.2 g/dL Hematocrit 42.9 36.0-46.0 % Mean Corpuscular Volume 87.4 80.0-100.0 fL Mean Corpuscular Hemoglobin 29.2 28.0-32.0 pg Mean Corpuscular Hemoglobin Concent 33.5 32.0-36.0 g/dL Red Cell Distribution Width 14.5 H 11.8-14.3 % Platelet Count 306 140-450 10^3/uL Mean Platelet Volume 8.1 6.9-10.8 fL Neutrophils (%) (Auto) 75.7 37.0-80.0 % Lymphocytes (%) (Auto) 16.0 10.0-50.0 % Monocytes (%) (Auto) 6.9 0.0-12.0 % Eosinophils (%) (Auto) 0.7 0.0-7.0 % Basophils (%) (Auto) 0.7 0.0-2.0 % Neutrophils # (Auto) 5.8 1.6-8.6 10 ^3/uL Lymphocytes # (Auto) 1.2 0.4-5.4 10 ^3/uL Monocytes # (Auto) 0.5 0-1.3 10 ^3/uL Eosinophils # (Auto) 0.1 0-0.8 10 ^3/uL Basophils # (Auto) 0.1 0-0.2 10 ^3/uL Nucleated Red Blood Cells 0.1 % Prothrombin Time 10.4 9.3-11.8 sec Prothrombin Time INR 0.98 0.9-1.15 Activated Partial Thromboplast Time 29.1 24.5-34.5 SEC Sodium Level 138 136-145 mmol/L Potassium Level 5.4 H 3.5-5.1 mmol/L Chloride Level 105 98-107 mmol/L Carbon Dioxide Level 26 20-31 mmol/L Anion Gap 7 5-15 Blood Urea Nitrogen 8 L 9-23 mg/dL Creatinine 1.06 H 0.550-1.02 mg/dL Glomerular Filtration Rate Calc 61 >90 mL/min BUN/Creatinine Ratio 7.5 L 10.0-20.0 Serum Glucose 116 H 74-106 mg/dL Hemoglobin A1c 5.8 H <5.7 % A1C Lactic Acid Level 1.6 0.4-2.0 mmol/L Calcium Level 9.0 8.7-10.4 mg/dL Phosphorus Level 3.1 2.4-5.1 mg/dL Magnesium Level 2.2 1.6-2.6 mg/dL Total Bilirubin 0.8 0.2-1.0 mg/dL Aspartate Amino Transferase (AST) 40 13-40 U/L Alanine Aminotransferase (ALT) 38 7-40 U/L Alkaline Phosphatase 101 46-116 U/L Total Protein 6.6 5.7-8.2 g/dL Albumin 4.1 3.2-4.8 g/dL Vitamin B12 Level 586 211-911 pg/mL Vitamin D 25-Hydroxy 24.1 L 30.0-100 ng/mL Thyroid Stimulating Hormone (TSH) 4.41 0.55-4.78 uIU/mL Influenza Type A Antigen Negative Negative Influenza Type B Antigen Negative Negative SARS-CoV-2 Antigen (Rapid) Negative NEGATIVE Direct Bilirubin < 0.1 <0.3 mg/dL B-Type Natriuretic Peptide 6.30 0-100 pg/mL Triglycerides Level 276 H < 150 mg/dL Cholesterol Level 336 H < 200 mg/dL LDL Cholesterol 265 H < 100 mg/dL HDL Cholesterol 57 40-59 mg/dL Test 01/14/25 13:21 Range/Units Urine Color Yellow Yellow Urine Clarity Hazy H Clear Urine pH 5.5 5.0-9.0 Urine Specific [place] 1.025 1.001-1.035 Urine Protein Negative Negative Urine Ketones Negative Negative Urine Blood Negative Negative /uL Urine Nitrite Negative Negative Urine Bilirubin Negative Negative Urine Urobilinogen Normal Negative mg/dL Urine Leukocyte Esterase Negative Negative /uL Urine RBC 1 0 - 4 /hpf Urine Microscopic WBC 11 H 0-5 /HPF Urine Squamous Epithelial Cells Mod <5 /hpf Urine Bacteria Many H None Seen /hpf Urine Glucose Normal Normal mg/dL Urine Opiates Screen Pos NEGATIVE Urine Fentanyl Screen Neg NEGATIVE Urine Barbiturates Screen Neg NEGATIVE Urine Phencyclidine Screen Neg NEGATIVE Urine Amphetamines Screen Neg NEGATIVE Urine Benzodiazepines Screen Neg NEGATIVE Urine Cocaine Screen Neg NEGATIVE Urine Cannabinoids Screen Neg NEGATIVE Microbiology Date/Time Source Procedure Growth Status 01/15/25 05:55 Nose MRSA Screen - Final Complete Assessment * Chest pain, rule out unstable angina/NSTE-ACS . Troponins negative; intermediate risk; ischemia testing pending. * Primary hypercholesterolemia, severe . LDL 265, requires high-intensity therapy. * Hypertension, controlled * PASHA on CPAP * PACs/first-degree AV block, low voltage ECG Plan/Recommendation Plan Cardiac Ischemia / ACS Rule-Out * Continue ASA 81 mg daily. , lisinopril 10 mg daily * Enoxaparin 40 mg sc * Continue nitroglycerin PRN; monitor BP. * Proceed with Cardiolite stress test today/tomorrow. * Telemetry monitoring; repeat ECG with chest pain. * reassess based on stress results (ischemia ? cath vs medical management). * Echo reviewed: EF preserved, biatrial enlargement. * Hold further diuretics unless evidence of congestion. * Maintain K >4, Mg >2. Lipid Management * Escalate to atorvastatin 80 mg nightly. Monitor LFTs closely * Add ezetimibe 10 mg daily. * Consider PCSK9 inhibitor outpatient. * Dietitian referral. Hypertension * Continue lisinopril 10 mg daily. * Monitor for hypotension (prazosin, nitro, morphine, lisinopril). Arrhythmia/QTc * Telemetry. * Monitor QTc, avoid QT-prolonging meds. * Correct electrolytes daily. PASHA * Continue nightly CPAP with 2 L O?. Prophylaxis * If not on therapeutic anticoagulation: enoxaparin 40 mg SC daily for DVT ppx + SCDs. * Pantoprazole for GI protection. * Bowel regimen if opioids continued. Case discussed in detail with the attending physician, including the clinical presentation, diagnostic workup, and comprehensive management plan. The patient was present for the discussion and demonstrated understanding of his condition and the proposed plan. Plan discussed with: Patient, Spouse Visit Coding Cardiology RES Date of Service: Jan 15, 2025 Billing Provider: LUIS BARRIENTOS MD Cardiology Common Codes: [id number] INP/OBS CARE (High) RAFFY BATISTA RESIDENT Jan 15, 2025 13:59
[2025-01-15] MEDS ORDERED: ATORVASTATIN 20 MG TAB PO SCH (17:00)
--- NOTE | 2025-01-15 18:01 | DVHPNRES ---
Progress Note Date Seen: Jan 15, 2025 Resident Creating Document: NORM MCINTYRE RESIDENT Medical Necessity Reason Pt with a Central, PICC or Fol: No Subjective Review of Systems This is a 59-year-old female past medical history of HTN, HLD, anxiety, depression, PTSD, GERD, umbilical hernia, PASHA with CPAP at home, thyroid nodule, ovarian cyst came to ER with complain of chest pain which is continuous for last 3 days pressure-like sensation, constant, occasionally radiate to left arm and jaw, increase with exercise or any exertion, mild relieved associated with shortness of breaths for same duration. Patient having also symptoms of orthopnea, paroxysmal nocturnal dyspnea. Patient seen by Cardiology and stress test done on 2021 report came back negative but no angiogram. PMHx: HTN, HLD, anxiety, depression, PTSD, GERD, umbilical hernia, PASHA with CPAP at home, thyroid nodule, ovarian cyst Surgical history: Appendicectomy, gastric bypass surgery in 2021, x3 Family history: Father of [place] in 40s, mother had colon cancer at the age of 50 Personal history: Quit smoking 5 years ago used to smoke 1 pack per day since 40 years, denies drinking, drug use Lives with: Family PCP: Dr. Tran Patient seen and evaluated in bedside. Patient morbidly obese and difficulty in movement. Cardiology consulted and waiting for stress test report. Objective vital signs Vital Sign Date Time Temp Pulse Resp B/P (MAP) Pulse Ox O2 Delivery O2 Flow Rate FiO2 01/15/25 16:41 98.0 79 18 107/43 (64) 96 98.0 01/15/25 02:38 Room Air* 0 21 Total Intake and Output 01/14/25 01/14/25 01/15/25 15:00 23:00 07:00 Intake Total 0 ml Output Total 0 ml Balance 0 ml medications Current Medications Medications Dose Ordered Sig/Demetria Route Start Time Stop Time Status Last Admin Dose Admin Nitroglycerin 0.4 mg Q5MINP PRN SL 01/14/25 23:15 Morphine Sulfate 2 mg Q30M PRN IV 01/14/25 23:15 01/15/25 02:04 2 MG Aspirin 81 mg DAILY PO 01/15/25 10:00 01/15/25 10:07 81 MG Pantoprazole Sodium 40 mg DAILY IV 01/16/25 10:00 Paroxetine HCl 40 mg DAILY PO 01/15/25 10:00 01/15/25 12:49 40 MG Buspirone HCl 15 mg Q12HR PO 01/15/25 10:00 01/15/25 12:49 15 MG Lisinopril 10 mg DAILY PO 01/15/25 10:00 Quetiapine Fumarate 200 mg HS PO 01/15/25 22:00 Prazosin HCl 2 mg Q12HR PO 01/15/25 10:00 01/15/25 12:48 2 MG Enoxaparin Sodium 40 mg DAILY SC 01/15/25 13:45 UNV Atorvastatin Calcium 80 mg HS PO 01/16/25 22:00 Examination General: Patient alert and oriented in person, place and time. Obese HEENT: Normocephalic, atraumatic, moist mucous membranes Respiratory/pulmonary: Clear lungs bilaterally, vesicular murmurs present in almost all lung guan, crackles heard on auscultation Cardiovascular: Normal heart sounds S1 and S2 with no associated murmurs Abdomen: Abdomen nondistended, there is no pain to palpation in any of the abdominal quadrants, no palpable masses. Extremities: Mild 2 Bilateral leg swelling Skin: No rashes or pruritus, there is no sacral edema present at this time. Neurological: Intact cranial nerves with no focal neurologic deficits laboratory and microbiology Laboratory Tests 01/15/25 09:20 Test 01/15/25 09:20 Range/Units Serum Glucose 116 H 74-106 mg/dL Microbiology Date/Time Source Procedure Growth Status 01/15/25 05:55 Nose MRSA Screen - Final Complete Problem List/Assessment/Plan Problem List/Assessment/Plan # Acute chest pain rule out ACS # Possible systolic/diastolic heart failure exacerbation #PACs/first-degree AV block, low voltage ECG - aspirin 81 mg - Continue nitroglycerin PRN; monitor BP. - troponins x2 negative -BNP 6.30 -echocardiogram shows left ventricular ejection fraction 55%, biatrial enlargement, RV enlargement -Telemetry monitoring; repeat ECG with chest pain. - morphine IV as needed and nitro s/l for pain management -Hold further diuretics unless evidence of congestion. -cardiology consult appreciated and recommended stress test -reassess based on stress results. # Possible systolic/diastolic heart failure exacerbation - Echo ordered, pending - Cardiology consulted, pending - furosemide 40 mg IV once, reassess for response, and will adjust dosage. # Dyslipidemia Escalate to atorvastatin 80 mg nightly. Monitor LFTs closely Add ezetimibe 10 mg daily. Consider PCSK9 inhibitor outpatient. Dietitian referral Lifestyle modification # anxiety # depression # PTSD -Paxil 40 mg Rexulti 0.25 mg BuSpar 15 mg Seroquel 200 mg bed time # Hypertension Continue lisinopril 10 mg p.o. daily Blood pressure monitor #Pre diabetes, hemoglobin A1c 5.8 #Vitamin-D deficiency Vitamin-D level 24.1 Vitamin-D 11510 units p.o. Q weekly #Hyperkalemia Potassium level 5.1> 5.4 BMP # MALLY due to vasomotor nephropathy - monitor kidney function - consider urine studies -nephrotoxic drugs #GERD. Pantoprazole 40 mg # Umbilical Hernia -follow up outpatient #Morbid obesity: BMI 65.5 lifestyle modifications for 13 minutes Lifestyle modification PPI prophylaxis: Pantoprazole 40 mg DVT prophylaxis: Lovenox 40 mg Goals of care discussions. More than 22 minutes spent with patient. Full code status. Case discussed with Dr. Celestin Plan discussed with: Patient, Other (Nurse) My Orders My Orders Orders - NORM MCINTYRE RESIDENT Procedure Category Date Status Time Paroxetine Tablet PHA 01/15/25 In Process (Paxil Tablet) 10:00 Buspirone Hcl Tablet PHA 01/15/25 In Process (Buspar Tablet) 10:00 Lisinopril Tablet PHA 01/15/25 In Process (Zestril Tablet) 10:00 Quetiapine Fumarate PHA 01/15/25 In Process Tablet (Seroquel Tab 22:00 Prazosin Hcl Capsule PHA 01/15/25 In Process (Minipres Capsule) 10:00 Cpap Trial For Am ORDERS 01/15/25 Transmitted 09:40 Communication Order ORDERS 01/15/25 Transmitted 09:46 Enoxaparin Sodium PHA 01/15/25 Pending (Lovenox) 13:45 NORM MCINTYRE RESIDENT Jan 15, 2025 18:01 ANJEL SANTIAGO RESIDENT Jan 17, 2025 23:35
[2025-01-15] MEDS: FUROSEMIDE 20 MG/2 ML VIAL IV ONE (19:25)
[2025-01-15] MEDS: ERGOCALCIFEROL 50,000 UNIT(1.25MG) CAP PO SCH (22:27)
[2025-01-15] MEDS: ENOXAPARIN SOD 40 MG/0.4 ML SYRINGE SC ONE (22:27)
[2025-01-16] VITALS (7 sets, daily range): BP systolic 109–129; BP diastolic 40–76; PULSE 67–80; RESP 16–20; TEMP 36.6; O2SAT 90–97
[2025-01-16 06:30] LABS: Hematocrit 41.3 % (36.0-46.0); Hemoglobin 14.1 g/dL (12.2-16.2); Mean Corpuscular Hemoglobin 29.8 pg (28.0-32.0); Mean Corpuscular Volume 87.2 fL (80.0-100.0); Nucleated Red Blood Cells % 0.1 %
[2025-01-16 06:36] LABS: Anion Gap 11 (5-15); Carbon Dioxide 24 mmol/L (20-31); Chloride 104 mmol/L (98-107); Potassium 4.1 mmol/L (3.5-5.1); Sodium 139 mmol/L (136-145)
[2025-01-16 06:37] LABS: Calcium 9.1 mg/dL (8.7-10.4)
[2025-01-16 06:41] LABS: Glucose 101 mg/dL (74-106)
[2025-01-16 06:42] LABS: BUN/Creatinine Ratio 8.0 (10.0-20.0)
[2025-01-16 06:47] LABS: Blood Urea Nitrogen 8 mg/dL (9-23)
[2025-01-16] MEDS: REGADENOSON 0.4 MG/5 ML SYRG IV ONE ×2 (07:33→07:42)
[2025-01-16] MEDS: PANTOPRAZOLE 40 MG/10 ML VIAL INJ IV SCH (10:47)
[2025-01-16] MEDS: ENOXAPARIN SOD 40 MG/0.4 ML SYRINGE SC SCH (10:49)
--- NOTE | 2025-01-16 11:42 | DVHPNRES ---
Progress Note Medical Necessity Reason Pt with a Central, PICC or Fol: No Objective vital signs Vital Sign Date Time Temp Pulse Resp B/P (MAP) Pulse Ox O2 Delivery O2 Flow Rate FiO2 01/16/25 10:56 122/72 01/16/25 09:00 98.1 67 20 92 98.1 01/15/25 20:00 Room Air* 0 21 Total Intake and Output 01/15/25 01/15/25 01/16/25 15:00 23:00 07:00 Intake Total 250 ml 0 ml Balance 250 ml 0 ml medications Current Medications Medications Dose Ordered Sig/Demetria Route Start Time Stop Time Status Last Admin Dose Admin Nitroglycerin 0.4 mg Q5MINP PRN SL 01/14/25 23:15 Morphine Sulfate 2 mg Q30M PRN IV 01/14/25 23:15 01/15/25 02:04 2 MG Aspirin 81 mg DAILY PO 01/15/25 10:00 01/16/25 10:48 81 MG Pantoprazole Sodium 40 mg DAILY IV 01/16/25 10:00 01/16/25 10:47 40 MG Paroxetine HCl 40 mg DAILY PO 01/15/25 10:00 01/16/25 10:48 40 MG Buspirone HCl 15 mg Q12HR PO 01/15/25 10:00 01/16/25 10:49 15 MG Lisinopril 10 mg DAILY PO 01/15/25 10:00 01/16/25 10:56 10 MG Quetiapine Fumarate 200 mg HS PO 01/15/25 22:00 01/15/25 22:28 200 MG Prazosin HCl 2 mg Q12HR PO 01/15/25 10:00 01/16/25 10:56 2 MG Enoxaparin Sodium 40 mg DAILY SC 01/16/25 10:00 01/16/25 10:49 40 MG Atorvastatin Calcium 80 mg HS PO 01/16/25 22:00 Ergocalciferol 50,000 unit Q7D PO 01/15/25 21:00 01/15/25 22:27 50,000 UNIT laboratory and microbiology Laboratory Tests 01/16/25 05:49 Test 01/16/25 05:49 Range/Units Serum Glucose 101 74-106 mg/dL Microbiology Date/Time Source Procedure Growth Status 01/15/25 05:55 Nose MRSA Screen - Final Complete Problem List/Assessment/Plan Problem List/Assessment/Plan # Acute chest pain rule out ACS # Possible systolic/diastolic heart failure exacerbation #PACs/first-degree AV block, low voltage ECG - aspirin 81 mg - Continue nitroglycerin PRN; monitor BP. - troponins x2 negative -BNP 6.30 -echocardiogram shows left ventricular ejection fraction 55%, biatrial enlargement, RV enlargement -Telemetry monitoring; repeat ECG with chest pain. - morphine IV as needed and nitro s/l for pain management -Hold further diuretics unless evidence of congestion. -cardiology consult appreciated and recommended stress test -reassess based on stress results. # Possible systolic/diastolic heart failure exacerbation - Echo ordered, pending - Cardiology consulted, pending - furosemide 40 mg IV once, reassess for response, and will adjust dosage. # Dyslipidemia Escalate to atorvastatin 80 mg nightly. Monitor LFTs closely Add ezetimibe 10 mg daily. Consider PCSK9 inhibitor outpatient. Dietitian referral Lifestyle modification # anxiety # depression # PTSD -Paxil 40 mg Rexulti 0.25 mg BuSpar 15 mg Seroquel 200 mg bed time # Hypertension Continue lisinopril 10 mg p.o. daily Blood pressure monitor #Pre diabetes, hemoglobin A1c 5.8 #Vitamin-D deficiency Vitamin-D level 24.1 Vitamin-D 49391 units p.o. Q weekly #Hyperkalemia Potassium level 5.1> 5.4 BMP # MALLY due to vasomotor nephropathy - monitor kidney function - consider urine studies -nephrotoxic drugs #GERD. Pantoprazole 40 mg # Umbilical Hernia -follow up outpatient #Morbid obesity: BMI 65.5 lifestyle modifications for 13 minutes Lifestyle modification PPI prophylaxis: Pantoprazole 40 mg DVT prophylaxis: Lovenox 40 mg Goals of care discussions. More than 22 minutes spent with patient. Full code status. Case discussed with Dr. Celestin My Orders My Orders Orders - NORM MCINTYRE Procedure Category Date Status Time Ergocalciferol PHA 01/15/25 In Process (Vitamin D 50,000 21:00 Enoxaparin Sodium PHA 01/16/25 In Process (Lovenox) 10:00 Cardiac DIET 01/16/25 Transmitted Diet-2gna,Lofat,Lochol Breakfast NORM MCINTYRE RESIDENT Jan 16, 2025 11:42
--- NOTE | 2025-01-16 13:20 | DVHSR ---
APPROVED REPORT Exam: Nuclear Stress Test BMI: 0 Stress Test Details HR Max Heart Rate (APMHR): 161.992706 bpm Target HR (85% APMHR): 136.192547 bpm BP ECG Stress ECG Conclusion normal perfusion scan no severe ischemia lvef 76% NM EXAM: Myocardial Perfusion REST/STRESS Imaging Protocol: Rest Tc-99m/Stress Tc-99m 2 days Resting Data Rest SPECT myocardial perfusion imaging was performed in supine position 60 minutes following the int ravenous injection of 24.1 mCi of Tc-99m Sestamibi. Time of rest injection: 14:25 Date: 01/15/2025 Time of rest imagin:25 Date: 01/15/2025 Administration Route: IV Administration Site: Left Hand Pharmacologic Stress Pharmacologic stress test was performed by injecting Regadenoson 0.4 mg IV push followed by the intra venous injection of 27.3 mCi of Tc-99m Sestamibi. Time of stress injection: 07:41 Date: 01/16/2025 Time of stress imagin:41 Date: 01/16/2025 Administration Route: IV Administration Site: Left Hand Gated Stress SPECT was performed 60 minutes after stress injection. The images were gated to evaluate regional wall motion and calculate left ventricular ejection fracti on. Stress only was performed in the Supine position. Nuclear Conclusion Nuclear Findings: negative for ischemia normal perfusion scan no severe ischemia lvef 76%
[2025-01-16] MEDS ORDERED: LISI-275 PO (14:24)
[2025-01-16] MEDS ORDERED: ERGO1CAP23 PO (14:24)
[2025-01-16] MEDS ORDERED: ASPI-325 PO (14:24)
[2025-01-16] MEDS ORDERED: BUSP10TA31 PO (14:24)
[2025-01-16] MEDS ORDERED: QUET100T47 PO (14:24)
[2025-01-16] MEDS ORDERED: ATOR20TA50 PO (14:24)
[2025-01-16] MEDS ORDERED: PAR20T PO (14:24)
[2025-01-16] MEDS ORDERED: PRAZ1CAP2 PO (14:24)
--- NOTE | 2025-01-16 16:24 | DVHPNRES ---
Progress Note Date Seen: Jan 16, 2025 Resident Creating Document: RAFFY BATISTA RESIDENT Medical Necessity Reason Pt with a Central, PICC or Fol: No Subjective Review of Systems Today, the patient underwent Cardiolite nuclear stress test, Which showed normal perfusion scan, no evidence of severe ischemia, and preserved left ventricular systolic function with EF of 76%. No complain of chest pain, angina, palpitation or new dyspnea. No syncope, orthopnea or PND. Objective vital signs Vital Sign Date Time Temp Pulse Resp B/P (MAP) Pulse Ox O2 Delivery O2 Flow Rate FiO2 01/16/25 15:41 36.6 01/16/25 13:00 76 18 109/40 (63) 92 01/16/25 08:00 Room Air* 0 21 Total Intake and Output 01/15/25 01/15/25 01/16/25 15:00 23:00 07:00 Intake Total 250 ml 0 ml Balance 250 ml 0 ml medications Current Medications Medications Dose Ordered Sig/Demetria Route Start Time Stop Time Status Last Admin Dose Admin Nitroglycerin 0.4 mg Q5MINP PRN SL 01/14/25 23:15 Morphine Sulfate 2 mg Q30M PRN IV 01/14/25 23:15 01/15/25 02:04 2 MG Aspirin 81 mg DAILY PO 01/15/25 10:00 01/16/25 10:48 81 MG Pantoprazole Sodium 40 mg DAILY IV 01/16/25 10:00 01/16/25 10:47 40 MG Paroxetine HCl 40 mg DAILY PO 01/15/25 10:00 01/16/25 10:48 40 MG Buspirone HCl 15 mg Q12HR PO 01/15/25 10:00 01/16/25 10:49 15 MG Lisinopril 10 mg DAILY PO 01/15/25 10:00 01/16/25 10:56 10 MG Quetiapine Fumarate 200 mg HS PO 01/15/25 22:00 01/15/25 22:28 200 MG Prazosin HCl 2 mg Q12HR PO 01/15/25 10:00 01/16/25 10:56 2 MG Enoxaparin Sodium 40 mg DAILY SC 01/16/25 10:00 01/16/25 10:49 40 MG Atorvastatin Calcium 80 mg HS PO 01/16/25 22:00 Ergocalciferol 50,000 unit Q7D PO 01/15/25 21:00 01/15/25 22:27 50,000 UNIT Examination General-alert, oriented, conversant. CV-RRR, no murmur/rubs, gallops.No S3/S4.Trace symmetric lower extremity edema Lungs-clear, no rales/wheezes. Neck-no JVD. Neuro-no focal. Examination: GENERAL:Normal, HEENT:Normal, NECK:Normal, LUNGS:Normal, CVS:Normal, ABDOMEN:Normal, MSK:Normal, SKIN:Normal, NEURO:Normal, :Normal laboratory and microbiology Laboratory Tests 01/16/25 05:49 Test 01/16/25 05:49 Range/Units Serum Glucose 101 74-106 mg/dL Microbiology Date/Time Source Procedure Growth Status 01/15/25 05:55 Nose MRSA Screen - Final Complete Problem List/Assessment/Plan Problem List/Assessment/Plan Assessment * Chest pain, rule out unstable angina/NSTE-ACS . Troponins negative; intermediate risk; ischemia testing negative * Primary hypercholesterolemia, severe . LDL 265, requires high-intensity therapy. * Hypertension, controlled * PASHA on CPAP * PACs/first-degree AV block, low voltage ECG Plan/Recommendation Plan Cardiac Ischemia / ACS Rule-Out * Continue ASA 81 mg daily. , lisinopril 10 mg daily ACS ruled out, cleared from Cardiology standpoint. Stress test negative. * Echo reviewed: EF preserved, biatrial enlargement. * Hold further diuretics unless evidence of congestion. * Maintain K >4, Mg >2. Lipid Management * Escalate to atorvastatin 80 mg nightly. Monitor LFTs closely * Add ezetimibe 10 mg daily. * Consider PCSK9 inhibitor outpatient. * Dietitian referral. Hypertension * Continue lisinopril 10 mg daily. * Monitor for hypotension (prazosin, nitro, morphine, lisinopril). PASHA * Continue nightly CPAP with 2 L O?. Prophylaxis * If not on therapeutic anticoagulation: enoxaparin 40 mg SC daily for DVT ppx + SCDs. * Pantoprazole for GI protection. * Bowel regimen if opioids continued. Outpatient cardiology follow-up within 1-2 weeks. Cleared from cardiology standpoint Plan discussed with: Patient My Orders My Orders Orders - RAFFY BATISTA RESIDENT Procedure Category Date Status Time Atorvastatin (Lipitor) PHA 01/16/25 In Process 22:00 Visit Coding Cardiology RES Date of Service: Jan 16, 2025 Billing Provider: LUIS BARRIENTOS MD Cardiology Common Codes: [id number] HOSP CARE(RAFFY Fishman FLORES RESIDENT Jan 16, 2025 16:24
--- NOTE | 2025-01-16 20:41 | DVHDSRES ---
Discharge Summary Date of Admission Resident Creating Document: NORM MCINTYRE RESIDENT Jan 14, 2025 at 23:05 Date of Discharge: Jan 16, 2025 Labs/Diagnostic Data: Laboratory Results Test 01/16/25 05:49 01/15/25 14:17 01/15/25 09:20 01/15/25 01:30 White Blood Count 5.2 10^3/uL (4.4-10.8) Red Blood Count 4.73 10^6/uL (4.0-5.20) Hemoglobin 14.1 g/dL (12.2-16.2) Hematocrit 41.3 % (36.0-46.0) Mean Corpuscular Volume 87.2 fL (80.0-100.0) Mean Corpuscular Hemoglobin 29.8 pg (28.0-32.0) Mean Corpuscular Hemoglobin Concent 34.1 g/dL (32.0-36.0) Red Cell Distribution Width 14.4 % (11.8-14.3) Platelet Count 269 10^3/uL (140-450) Mean Platelet Volume 8.0 fL (6.9-10.8) Neutrophils (%) (Auto) 60.6 % (37.0-80.0) Lymphocytes (%) (Auto) 27.2 % (10.0-50.0) Monocytes (%) (Auto) 10.0 % (0.0-12.0) Eosinophils (%) (Auto) 1.2 % (0.0-7.0) Basophils (%) (Auto) 1.0 % (0.0-2.0) Neutrophils # (Auto) 3.1 10 ^3/uL (1.6-8.6) Lymphocytes # (Auto) 1.4 10 ^3/uL (0.4-5.4) Monocytes # (Auto) 0.5 10 ^3/uL (0-1.3) Eosinophils # (Auto) 0.1 10 ^3/uL (0-0.8) Basophils # (Auto) 0.1 10 ^3/uL (0-0.2) Nucleated Red Blood Cells 0.1 % Sodium Level 139 mmol/L (136-145) Potassium Level 4.1 mmol/L (3.5-5.1) Chloride Level 104 mmol/L (98-107) Carbon Dioxide Level 24 mmol/L (20-31) Anion Gap 11 (5-15) Blood Urea Nitrogen 8 mg/dL (9-23) Creatinine 1.00 mg/dL (0.550-1.02) Glomerular Filtration Rate Calc 65 mL/min (>90) BUN/Creatinine Ratio 8.0 (10.0-20.0) Serum Glucose 101 mg/dL (74-106) Calcium Level 9.1 mg/dL (8.7-10.4) Troponin I High Sensitivity < 3 ng/L (</=34) Prothrombin Time 10.4 sec (9.3-11.8) Prothrombin Time INR 0.98 (0.9-1.15) Activated Partial Thromboplast Time 29.1 SEC (24.5-34.5) Hemoglobin A1c 5.8 % A1C (<5.7) Lactic Acid Level 1.6 mmol/L (0.4-2.0) Phosphorus Level 3.1 mg/dL (2.4-5.1) Magnesium Level 2.2 mg/dL (1.6-2.6) Total Bilirubin 0.8 mg/dL (0.2-1.0) Aspartate Amino Transferase (AST) 40 U/L (13-40) Alanine Aminotransferase (ALT) 38 U/L (7-40) Alkaline Phosphatase 101 U/L (46-116) Total Protein 6.6 g/dL (5.7-8.2) Albumin 4.1 g/dL (3.2-4.8) Vitamin B12 Level 586 pg/mL (211-911) Vitamin D 25-Hydroxy 24.1 ng/mL (30.0-100) Thyroid Stimulating Hormone (TSH) 4.41 uIU/mL (0.55-4.78) Influenza Type A Antigen Negative (Negative) Influenza Type B Antigen Negative (Negative) SARS-CoV-2 Antigen (Rapid) Negative (NEGATIVE) Test 01/15/25 00:45 01/14/25 13:21 Direct Bilirubin < 0.1 mg/dL (<0.3) B-Type Natriuretic Peptide 6.30 pg/mL (0-100) Triglycerides Level 276 mg/dL (< 150) Cholesterol Level 336 mg/dL (< 200) LDL Cholesterol 265 mg/dL (< 100) HDL Cholesterol 57 mg/dL (40-59) Urine Color Yellow (Yellow) Urine Clarity Hazy (Clear) Urine pH 5.5 (5.0-9.0) Urine Specific [place] 1.025 (1.001-1.035) Urine Protein Negative (Negative) Urine Ketones Negative (Negative) Urine Blood Negative /uL (Negative) Urine Nitrite Negative (Negative) Urine Bilirubin Negative (Negative) Urine Urobilinogen Normal mg/dL (Negative) Urine Leukocyte Esterase Negative /uL (Negative) Urine RBC 1 /hpf (0 - 4) Urine Microscopic WBC 11 /HPF (0-5) Urine Squamous Epithelial Cells Mod /hpf (<5) Urine Bacteria Many /hpf (None Seen) Urine Glucose Normal mg/dL (Normal) Urine Opiates Screen Pos (NEGATIVE) Urine Fentanyl Screen Neg (NEGATIVE) Urine Barbiturates Screen Neg (NEGATIVE) Urine Phencyclidine Screen Neg (NEGATIVE) Urine Amphetamines Screen Neg (NEGATIVE) Urine Benzodiazepines Screen Neg (NEGATIVE) Urine Cocaine Screen Neg (NEGATIVE) Urine Cannabinoids Screen Neg (NEGATIVE) Other Laboratory Tests 01/16/25 05:49 Brief Hx & Hospital Course: This is a 59-year-old female past medical history of HTN, HLD, anxiety, depression, PTSD, GERD, umbilical hernia, PASHA with CPAP at home, thyroid nodule, ovarian cyst came to ER with complain of chest pain which is continuous for last 3 days pressure-like sensation, constant, occasionally radiate to left arm and jaw, increase with exercise or any exertion, mild relieved associated with shortness of breaths for same duration. Patient having also symptoms of orthopnea, paroxysmal nocturnal dyspnea. Patient seen by Cardiology and stress test done on 2021 report came back negative but no angiogram. PMHx: HTN, HLD, anxiety, depression, PTSD, GERD, umbilical hernia, PASHA with CPAP at home, thyroid nodule, ovarian cyst Surgical history: Appendicectomy, gastric bypass surgery in 2021, x3 Family history: Father of DC in 40s, mother had colon cancer at the age of 50 Personal history: Quit smoking 5 years ago used to smoke 1 pack per day since 40 years, denies drinking, drug use Lives with: Family PCP: Dr. Tran Hospital course: patient admitted due to acute on chronic diastolic heart failure with EF 55%. During hospital stay patient treated conservatively with acute and chronic medical condition, symptoms significantly improved. On admission troponin x 2 -negative, EKG shows no ST wave changes. Echo-shows left ventricular ejection fraction 55%, bi-atrial enlargement, RV enlargement. Cardiology consulted, stress test on 01/16/2025- negative for any ischemic changes. Optimized statin therapy, follow-up with primary care physician outpatient and repeat lipid profile. Currently patient denies any fever, SOB, chest pain, headache, abdominal pain or any other acute distress. Patient morbidly obese and educated regarding lifestyle modification. Patient is hemodynamically stable for discharge. The patient has received maximum benefits from inpatient treatment. Time was given to answer patient/ parents questions and concerns in Layman terms. patient verbalized understanding and agree with treatment and follow-up. Patient was recommended to return to the ED if she experiences any worsening symptoms such as, but not limited to current symptoms. Continue current home medication and follow-up with discharge Clinic and PCP within 2 weeks . Follow-up with private chief i dispatcher within 2-4 weeks after discharge from hospital. Patient educated and advised to resume home medication. PHYSICAL EXAMINATION CONSTITUTIONAL: NO: FEVER, CHILLS, SWEATS, WEAKNESS, MALAISE, OBESE EYES: NO: PAIN, VISION CHANGE, CONJUNCTIVAE INFLAMMATION, EYELID INFLAMMATION ENT: NO: EAR PAIN, EAR DISCHARGE, NOSE PAIN, NOSE DISCHARGE, NOSE CONGESTION, MOUTH PAIN, MOUTH SWELLING, THROAT PAIN, THROAT SWELLING RESPIRATORY: SHORTNESS OF BREATH; NO: COUGH, DRY, SOB WITH EXCERTION, WHEEZING, HEMOPTYSIS, PLEURITIC PAIN, SPUTUM, WHEEZING CARDIOVASCULAR: NO: CHEST PAIN, PALPITATIONS, ORTHOPNEA, PAROXYSMAL NOC. DYSPNEA, EDEMA, LT HEADEDNESS GASTROINTESTINAL: NO: NAUSEA, VOMITING, ABDOMINAL PAIN, DIARRHEA, CONSTIPATION, MELENA, HEMATOCHEZIA GENITOURINARY: NO DYSURIA, NO FREQUENCY, NO INCONTINENCE, NO HEMATURIA, NO RETENTION MUSCULOSKELETAL: NO: OTHER, NECK PAIN, SHOULDER PAIN, ARM PAIN, BACK PAIN, HAND PAIN, LEG PAIN, FOOT PAIN SKIN: NO: RASH, LESIONS, JAUNDICE, BRUISING NEUROLOGICAL: NO: WEAKNESS, NUMBNESS, INCOORDINATION, CHANGE IN SPEECH, CONFUSION, SEIZURES Operations or Procedures ORDERING PHYSICIAN: RAFFY BATISTA RESIDENT PROCEDURE(s): CWMM - CARDIOLITE MULTIPLE REASON: Evaluate for myocardial ischemia ORDER NUMBER(s): [id number], ACCESSION NUMBER(s): [id number] APPROVED REPORT Exam: Nuclear Stress Test BMI: 0 Stress Test Details HR Max Heart Rate (APMHR): 161.154606 bpm Target HR (85% APMHR): 136.626418 bpm BP ECG Stress ECG Conclusion normal perfusion scan no severe ischemia lvef 76% NM EXAM: Myocardial Perfusion REST/STRESS Imaging Protocol: Rest Tc-99m/Stress Tc-99m 2 days Resting Data Rest SPECT myocardial perfusion imaging was performed in supine position 60 minutes following the intravenous injection of 24.1 mCi of Tc-99m Sestamibi. Time of rest injection: 14:25 Date: 01/15/2025 Time of rest imagin:25 Date: 01/15/2025 Administration Route: IV Administration Site: Left Hand Pharmacologic Stress Pharmacologic stress test was performed by injecting Regadenoson 0.4 mg IV push followed by the intravenous injection of 27.3 mCi of Tc-99m Sestamibi. Time of stress injection: 07:41 Date: 01/16/2025 Time of stress imagin:41 Date: 01/16/2025 Administration Route: IV Administration Site: Left Hand Gated Stress SPECT was performed 60 minutes after stress injection. The images were gated to evaluate regional wall motion and calculate left ventricular ejection fraction. Stress only was performed in the Supine position. Nuclear Conclusion Nuclear Findings: negative for ischemia normal perfusion scan no severe ischemia lvef 76% SIGNED BY: LUIS BARRIENTOS MD SIGNED DATE/TIME: 01/16/25 1320 ORDERING PHYSICIAN: PORSCHE CORONA MD PROCEDURE(s): CXRP - CHEST PORTABLE REASON: sob ORDER NUMBER(s): [id number], ACCESSION NUMBER(s): [id number] CHEST RADIOGRAPH Indication: sob Technique: Single frontal view of the chest was obtained Comparison: None FINDINGS: Lines and Tubes: None Lungs: Pulmonary vascular congestion. No focal consolidation. Pleura: No effusion. No pneumothorax. Cardiomediastinal contours: Unremarkable Bones: No acute osseous abnormality. IMPRESSION: 1. Pulmonary vascular congestion. No focal consolidation. ATED BY: CHRIS DIAZ MD DICTATED DATE/TIME: 01/14/25 1346 Condition at Discharge: Stable Final Diagnosis/Problems List Acute on chronic diastolic heart failure Ruled out ACS PACs/first-degree AV block, low voltage ECG Hyperlipidemia Essential hypertension Prediabetes Hyperkalemia Vitamin-D deficiency MALLY due to vasomotor nephropathy GERD umbilical hernia Obstructive sleep apnea Anxiety disorder Depression PTSD Morbid obesity Discharge Disposition: Home Discharge Instruct/Medications Diet: Cardiac 2g Na,low cholest Activity: No Restrictions, As Tolerated Follow Up/Referral: FOLLOW-UP WITH PRIMARY CARE WITHIN 2 WEEKS DISCHARGE FOLLOW-UP WITH CARDIOLOGY WITHIN 2 WEEKS DISCHARGE FOLLOW-UP WITH OUTPATIENT [facility]IC WITHIN 1 WEEKS DISCHARGED FROM HOSPITAL Scheduled Aspirin (Aspirin Low Dose), 81 MG PO DAILY Atorvastatin Calcium (Atorvastatin Calcium), 80 MG PO HS Buspirone HCl (Buspirone HCl), 15 MG PO Q12HR Ergocalciferol (Vitamin D 01149 Unit), 50,000 UNIT PO Q7D Lisinopril (Lisinopril), 10 MG PO DAILY Paroxetine (Paxil Tablet), 40 MG PO DAILY Prazosin Hcl (Minipres), 2 MG PO Q12HR Quetiapine Fumerate (Quetiapine Fumarate), 200 MG PO HS Discontinued Medications Cephalexin (Keflex), 0 PO, (Reported) Discharge Statement: "Patient was advised to return to the ER or call 911 if any headaches, dizziness, shortness of breath, chest pain, abdominal pain, bleeding, fevers, or worsening of medical condition. Patient was counseled about treatment plan, medications, possible side effects, patientverbalized understanding. All questions were answered to the best of my ability. This discharge took greater then 30 minutes in planning, reviewing documentation, counseling the patient, and discussing with other team members." ASSESSMENT ASSESSMENT Assessment ACUTE DIASTOLIC HEART FAILURE. NORM MCINTYRE RESIDENT Jan 16, 2025 20:41 ANJEL SANTIAGO RESIDENT Jan 17, 2025 23:39
[2025-01-16] MEDS ORDERED: ATORVASTATIN 20 MG TAB PO SCH ×2 (22:00)
[2025-01-17] MEDS ORDERED: EMPA1TAB PO (23:38)
[2025-01-19] MEDS ORDERED: INFLUENZA TRIVALENT 2024-2025 0.5 ML INJ IM ONE (06:00)
[2025-01-19] MEDS ORDERED: PNEUMOCOCCAL VACC POLYS 25 MCG/0.5 ML VIAL IM ONE (06:00)
== END 2025-01-16 19:33 | disposition home or self-care (01) | DRG 201 ==
LOC: ER 12:11 → OVERFLOW 23:05 → TELE-EAST 01-15 02:30
PROVIDERS: ADMIT Student in an Organized Health Care Education/Training Program; ATTEND Student in an Organized Health Care Education/Training Program
DX: I44.0 Atrioventricular block, first degree (principal); N17.0 Acute kidney failure with tubular necrosis; I50.33 Acute on chronic diastolic (congestive) heart failure; I11.0 Hypertensive heart disease with heart failure; Z68.44 Body mass index [BMI] 60.0-69.9, adult; E66.01 Morbid (severe) obesity due to excess calories; K21.9 Gastro-esophageal reflux disease without esophagitis; G47.33 Obstructive sleep apnea (adult) (pediatric); Z20.822 Contact with and (suspected) exposure to COVID-19; K42.9 Umbilical hernia without obstruction or gangrene; F43.10 Post-traumatic stress disorder, unspecified; F41.9 Anxiety disorder, unspecified; F32.A Depression, unspecified; E55.9 Vitamin D deficiency, unspecified; E78.00 Pure hypercholesterolemia, unspecified; I49.1 Atrial premature depolarization; R73.03 Prediabetes; E87.5 Hyperkalemia; Z88.8 Allergy status to other drugs, medicaments and biological substances; Z98.84 Bariatric surgery status; Z87.891 Personal history of nicotine dependence; Z82.49 Family history of ischemic heart disease and other diseases of the circulatory system; Z90.49 Acquired absence of other specified parts of digestive tract; Z80.0 Family history of malignant neoplasm of digestive organs; Z99.89 Dependence on other enabling machines and devices; Z79.82 Long term (current) use of aspirin
CPT/HCPCS: 36415; 71045; 78452; 80048; 80053; 80061; 80076; 80307; 81001; 82306; 82607; 83036; 83605; 83735; 83880; 84100; 84443; 84484; 85025; 85610; 85730; 87081; 87426; 87804; 93005; 93017; 93306; 96374; 96375; G0378; J2405; J2470